=== PATIENT | male | born 1990 | race Caucasian/White ===

== ENCOUNTER 2017-11-01 10:14 | Emergency (ER) | payer SELFPAY ==
[~2017-11-01] VITALS: Ht 182.9 cm; Wt 102.1 kg
[~2017-11-01 10:14] MED LIST: ALBU90OI INH; AMOX875 PO; LAVAP17G PO; PROC10 PO; Percocet 5-3251 EACH PO; Prednisone20 MG PO; Veetids 500500 MG PO
== END 2017-11-01 11:49 | disposition home or self-care (01) ==
LOC: ER 10:14
DX: S70.02XA Contusion of left hip, initial encounter (principal); S90.31XA Contusion of right foot, initial encounter; S80.01XA Contusion of right knee, initial encounter; S50.312A Abrasion of left elbow, initial encounter; S50.311A Abrasion of right elbow, initial encounter; M79.644 Pain in right finger(s); F17.210 Nicotine dependence, cigarettes, uncomplicated; Z87.442 Personal history of urinary calculi; Z79.52 Long term (current) use of systemic steroids; Z79.899 Other long term (current) drug therapy; Y04.2XXA Assault by strike against or bumped into by another person, initial encounter; Y93.72 Activity, wrestling
CPT/HCPCS: 73502; 73630; 99283